=== PATIENT | male | born 1950 | race Caucasian/White ===

== ENCOUNTER 2021-04-21 08:16 | Outpatient (CLI) | payer MEDICARE, MEDICAID, SELFPAY ==
[2021-04-21 09:02] LABS: Anion Gap 13 mmol/L (8-16); Blood Urea Nitrogen 26 mg/dL (9-20); Calcium 9.7 mg/dL (8.4-10.2); Carbon Dioxide 32 mmol/L (22-30); Chloride 92 mmol/L (98-107); Estimated Glomerular Filt Rate > 60; Glucose 201 mg/dL (65-110); Potassium 3.7 mmol/L (3.4-5.0); Sodium 137 mmol/L (137-145)
== END 2021-04-21 08:17 | disposition home or self-care (01) ==
LOC: ANHSURGERY 08:24
PROVIDERS: Anesthesiology; PCP Internal Medicine Geriatric Medicine; Visit Provider Plastic Surgery
DX: E11.9 Type 2 diabetes mellitus without complications (principal); Z01.818 Encounter for other preprocedural examination
CPT/HCPCS: 36415; 80048

== ENCOUNTER 2021-04-27 00:24 | Day surgery (SDC) | payer MEDICARE, MEDICAID, SELFPAY ==
[2021-04-15 10:58] VITALS: BMI 26.6
--- NOTE | 2021-04-27 07:17 | WPDHPUPDATE1 ---
History and Physical Update Update Date/Time: 04/27/21 07:17 History and Physical has been reviewed, including an updated exam of the patient. There are NO changes in the patient's condition. Risks, benefits, and alternatives have been discussed and questions answered. Patient agrees to proceed with procedure.
[2021-04-27 07:28] VITALS: BP 123/54; PULSE 69; RESP 16; TEMP 36.3; O2SAT 100
--- NOTE | 2021-04-27 07:45 | WPDANESEPPF ---
Anes - Initial Pre Proc Eval Procedure: Operation Date: 04/27/21 09:00 Proposed Procedures p Excision of Squamous Cell Carcinoma Right Radial Wrist, Frozen Section, Possible Full Thickness Skin Graft - Miquel Ralph MD Date/Time: 04/27/21 07:45 Surgeon: Miquel Ralph MD Pre Op Diagnosis: squamous cell carcinoma rt radial wrist Patient Data Age: 70 Gender: M Height: 1.75 m Weight: 81.65 kg Allergies Allergy/AdvReac Type Severity Reaction Status Date / Time Penicillins Allergy Hives Verified 04/15/21 10:27 Home Medications Medication Instructions Recorded Confirmed Type hydrocodone 7.5 mg-acetaminophen 1 tablet PO Q6H PRN #120 tablet 10/15/20 04/15/21 Rx 325 mg tablet alprazolam 0.25 mg PO HS 04/15/21 04/15/21 History aspirin [Adult Low Dose Aspirin] 81 mg PO DAILY 04/15/21 04/15/21 History atorvastatin 80 mg PO QPM 04/15/21 04/15/21 History chlorthalidone 25 mg PO QAM 04/15/21 04/15/21 History cilostazol 50 mg PO BID 04/15/21 04/15/21 History clopidogrel 75 mg PO QAM 04/15/21 04/15/21 History empagliflozin [Jardiance] 25 mg PO QAM 04/15/21 04/15/21 History gabapentin 600 mg PO HS 04/15/21 04/15/21 History glimepiride 4 mg PO BID 04/15/21 04/15/21 History isosorbide mononitrate 60 mg PO QAM 04/15/21 04/15/21 History metformin 1,000 mg PO QAM 04/15/21 04/15/21 History metoprolol tartrate 50 mg PO BID 04/15/21 04/15/21 History nitroglycerin 0.04 mg SUBLINGUAL PRN PRN 04/15/21 04/15/21 History pantoprazole 40 mg PO QAM 04/15/21 04/15/21 History potassium chloride 20 meq PO QPM 04/15/21 04/15/21 History sitagliptin [Januvia] 100 mg PO QAM 04/15/21 04/15/21 History tamsulosin 0.8 mg PO HS 04/15/21 04/15/21 History Patient hx anesthesia problems: none Family hx anesthesia problems: none Results Review: All pre-operative results and documents have been reviewed as part of the pre-operative evaluation. [facility] Past Medical History Medical History (Updated 04/27/21 @ 07:46 by Kristopher Quintanilla MD) CAD (coronary artery disease) Diabetes History of hepatitis C HTN (hypertension) Hyperlipidemia PVD (peripheral vascular disease) Surgical History Surgical History (Updated 04/27/21 @ 07:46 by Kristopher Quintanilla MD) History of carotid endarterectomy Hx of CABG Social History Social History Smoking packs per day: 1.5 Smoking cigarettes per day: 30.0 Years smoked: 40 Smoking pack-years: 60.00 Smoking status: Former smoker Tobacco type: cigarettes Smoking end date: 07/09/09 Living arrangements: other Spiritual care concerns: No Anes - Eval Final PreProcedure Day of Procedure 04/27/21 07:45 Patient weight: overweight Heart: regular rate and rhythm and murmur (II/ SM) Lungs: clear to auscultation Airway: Mallampati scale class II and special considerations poor dentition Neurological: alert and oriented Last oral intake: >/= 8 hours ASA classification: III Emergent: no Anesthetic plan: proceed Anesthesia type and monitoring: general GIVS and standard monitoring Results Review: All pre-operative results and documents have been reviewed as part of the pre-operative evaluation. Informed Consent: The patient's anesthetic plan and its attendant risks and benefits were discussed with the patient/family/POA. Questions were solicited and answers provided to the satisfaction of the patient/family/POA.
[2021-04-27] MEDS: LACTATED RINGERS 1,000 ML 30 ML IV CONT (08:10)
[2021-04-27 08:18] LABS: Glucose Point of Care 185 mg/dl (65-105)
--- NOTE | 2021-04-27 09:06 | WPDHPUPDATE1 ---
History and Physical Update Update Date/Time: 04/27/21 09:06 History and Physical has been reviewed, including an updated exam of the patient. There are NO changes in the patient's condition. Risks, benefits, and alternatives have been discussed and questions answered. Patient agrees to proceed with procedure.
[2021-04-27 09:52] VITALS: BP 114/67; PULSE 64; RESP 16; TEMP 36.2; O2SAT 92
[2021-04-27 10:01] LABS: Glucose Point of Care 167 mg/dl (65-105)
--- NOTE | 2021-04-27 10:01 | W.PM.PROC2 ---
Procedure Note - Detailed Date of Procedure 04/27/21 Pre-op Diagnosis squamous cell carcinoma rt radial wrist Post-op Diagnosis same Procedure Performed 1.5 cm excision of squamous cell carcinoma of the right radial wrist with intermediate repair 3 cm Surgeon Miquel Ralph MD Anesthesia MAC Indications Biopsy-proven squamous cell carcinoma. Patient prefers sedation anesthetic Description of Procedure The red scaly plaque on the right radial wrist was marked on the patient while in holding area. He was then taken to the operating room placed supine on the operating table. He was given some IV sedation. Time-out was held and confirmed. The extremity was prepped and draped in usual fashion. The site was marked for excision. It was locally infiltrated with 1% lidocaine with epinephrine. No tourniquet was utilized. The lesion was taken off into the subcutaneous tissue and sent to pathology for permanent section no markings were placed. The skin edges required undermining approximately 4 mm hole away around. The repair was done in the superficial fascia and subcutaneous tissue with 4-0 interrupted Vicryl suture and the skin was closed with a running 5 0 nylon. A small gauze bandage with Coban wrap was applied. He is discharged with instructions in wound care and follow-up. No prescriptions were prescribed Estimated Blood Loss 2 Tourniquet Time 0 Drains No Packing No Pathology yes Complications No immediate complications Condition stable Disposition same day
[2021-04-27 10:15] VITALS: BP 115/55; PULSE 64; RESP 16; O2SAT 95
[2021-04-27 10:30] VITALS: BP 121/65; PULSE 58; RESP 16; O2SAT 98
== END 2021-04-27 10:40 | disposition home or self-care (01) ==
PROVIDERS: PCP Internal Medicine Geriatric Medicine; Visit Provider Plastic Surgery
PROC: (CPT 11602; principal; 2021-04-27 09:00)
DX: C44.622 Squamous cell carcinoma of skin of right upper limb, including shoulder (principal); I25.10 Atherosclerotic heart disease of native coronary artery without angina pectoris; I10 Essential (primary) hypertension; E78.5 Hyperlipidemia, unspecified; E11.51 Type 2 diabetes mellitus with diabetic peripheral angiopathy without gangrene; Z86.19 Personal history of other infectious and parasitic diseases; Z95.1 Presence of aortocoronary bypass graft; Z79.84 Long term (current) use of oral hypoglycemic drugs; Z79.02 Long term (current) use of antithrombotics/antiplatelets; Z79.82 Long term (current) use of aspirin; Z87.891 Personal history of nicotine dependence
CPT/HCPCS: 11602; 12032; 82948; 88304; 88305; A9270; J2250; J2704; J3010; J7120

== ENCOUNTER 2023-03-26 09:40 | Emergency (ER) | payer MEDICARE, MEDICAID, SELFPAY ==
[2023-03-26 09:50] VITALS: BP 160/76; PULSE 72; RESP 20; TEMP 36.3; O2SAT 100
--- NOTE | 2023-03-26 09:56 | ED.BURNSMOKE ---
HPI - Burn/Smoke Inhalation General Chief complaint: Burn/Smoke Inhalation Stated complaint: Burn on Left Fingers Time Seen by Provider: 03/26/23 09:56 Source: patient, RN notes reviewed and old records reviewed Mode of arrival: ambulatory Limitations: no limitations History of Present Illness HPI Narrative: 72 year old male presents to express care with complaints of sustaining chacon to left thumb distally galloway aspect and to side of left index finger from picking up a plastic dish drainer that was melting yesterday morning. Patient reports pain to burn and he has been applying Silvadene cream to chacon which have noted blisters with swelling and took Vicodin for pain. Patient is right hand dominant. Tetanus shot is not up to date.Patient is diabetic and is recovering from recent vascular surgery he had at [facility]. Complaint: burn (left thumb and index finger) Onset (ago): day(s) (day 2 of symptoms) Place: home Location - Extremities: Left: hand (thumb and index finger) Severity scale (1-10): 7 Treatment Prior to Arrival: other (silvadene ointment) Related Data Home Medications Medication Instructions Recorded Confirmed alprazolam 0.25 mg tablet 0.25 mg PO HS 04/15/21 03/26/23 atorvastatin 80 mg tablet 80 mg PO QPM 04/15/21 03/26/23 chlorthalidone 25 mg tablet 25 mg PO QAM 04/15/21 03/26/23 cilostazol 50 mg tablet 50 mg PO BID 04/15/21 03/26/23 clopidogrel 75 mg tablet 75 mg PO QAM 04/15/21 03/26/23 empagliflozin 25 mg tablet 25 mg PO QAM 04/15/21 03/26/23 (Jardiance) gabapentin 300 mg capsule 600 mg PO HS 04/15/21 03/26/23 glimepiride 4 mg tablet 4 mg PO BID 04/15/21 03/26/23 isosorbide mononitrate 60 mg 60 mg PO QAM 04/15/21 03/26/23 tablet,extended release 24 hr metformin 500 mg tablet 1,000 mg PO QAM 04/15/21 03/26/23 metoprolol tartrate 25 mg tablet 50 mg PO BID 04/15/21 03/26/23 nitroglycerin 0.4 mg sublingual 0.04 mg sublingual PRN PRN Chest 04/15/21 03/26/23 tablet Pain pantoprazole 40 mg tablet,delayed 40 mg PO QAM 04/15/21 03/26/23 release potassium chloride 20 mEq 20 meq PO QPM 04/15/21 03/26/23 tablet,extended release(part/cryst) sitagliptin phosphate 100 mg 100 mg PO QAM 04/15/21 03/26/23 tablet (Januvia) tamsulosin 0.4 mg capsule 0.8 mg PO HS 04/15/21 03/26/23 aspirin 81 mg tablet,delayed 81 mg PO DAILY 03/26/23 03/26/23 release (Adult Low Dose Aspirin) Allergies Allergy/AdvReac Type Severity Reaction Status Date / Time Penicillins Allergy Intermediate Hives Verified 03/26/23 10:03 Review of Systems Review of Systems: CONSTITUTIONAL: Denies fever, chills, or sweats. CARDIOVASCULAR: Denies chest pain, palpitations, or edema. RESPIRATORY: Denies cough or dyspnea. SKIN: Denies rash or itching. Denies lacerations or abrasions MUSCULOSKELETAL: Reports burn to left thumb and index finger which occurred yesterday blisters noted NEUROLOGIC: Denies numbness, or weakness. All systems reviewed & are unremarkable except as noted in HPI and below PMFSH Past Medical History Medical History (Updated 03/27/23 @ 09:07 by Sarah Lowery NP) CAD (coronary artery disease) Diabetes Femoral artery stenosis, right History of hepatitis C HTN (hypertension) Hyperlipidemia PVD (peripheral vascular disease) femoral bypass graft left, stent right Surgical History Surgical History (Updated 03/27/23 @ 08:59 by Sarah Lowery NP) History of carotid endarterectomy Hx of CABG Status post surgical removal of malignant neoplasm of skin Social History Social History Smoking packs per day: 1.5 Smoking cigarettes per day: 30.0 Years smoked: 40 Smoking pack-years: 60.00 Smoking status: Former smoker Tobacco type: cigarettes Smoking end date: 07/09/09 Living arrangements: other Spiritual care concerns: No Comments At time of signature, agree with nursing past medical, surgical, social and family history. The
[2023-03-26] MEDS: TETANUS,DIPHTHERIA,AC PERTUSSIS ADULT (0.5 ML) BOOSTRIX IM (10:18)
== END 2023-03-26 10:38 | disposition home or self-care (01) ==
PROVIDERS: Emergency Provider Registered Nurse; PCP Internal Medicine Geriatric Medicine
DX: T23.242A Burn of second degree of multiple left fingers (nail), including thumb, initial encounter (principal); X19.XXXA Contact with other heat and hot substances, initial encounter; Z23 Encounter for immunization; I25.10 Atherosclerotic heart disease of native coronary artery without angina pectoris; E11.9 Type 2 diabetes mellitus without complications; I10 Essential (primary) hypertension; E78.5 Hyperlipidemia, unspecified; I73.9 Peripheral vascular disease, unspecified; Z95.820 Peripheral vascular angioplasty status with implants and grafts; Z95.1 Presence of aortocoronary bypass graft; Z85.828 Personal history of other malignant neoplasm of skin; Z87.891 Personal history of nicotine dependence; Z79.84 Long term (current) use of oral hypoglycemic drugs; Z79.82 Long term (current) use of aspirin
CPT/HCPCS: 90471; 90715; 99213; G0463